=== PATIENT | male | born 1980 | race Hispanic/Latino ===

== ENCOUNTER 2017-07-21 15:59 | Emergency (ER) | payer SELFPAY ==
[~2017-07-21] VITALS: Ht 162.6 cm; Wt 75.0 kg
[2017-07-21] MEDS ORDERED: MOTRIN800 MG PO (17:38)
[2017-07-21 17:45] VITALS: BP 128/74
== END 2017-07-21 17:45 | disposition home or self-care (01) | DRG 605 ==
LOC: ED 15:59
DX: S20.212A Contusion of left front wall of thorax, initial encounter (principal); W18.2XXA Fall in (into) shower or empty bathtub, initial encounter; Y93.E1 Activity, personal bathing and showering; Y92.002 Bathroom of unspecified non-institutional (private) residence as the place of occurrence of the external cause